=== PATIENT | female | born 1965 | race Caucasian/White ===

== ENCOUNTER → 2021-03-19 | Outpatient (CLI) | payer OTHER ==
[~2021-03-19] MED LIST: ENDOCET 5-3251 EACH PO; FLEXERIL PO; NAPROSYN500 MG PO; NEURONTIN 300300 M1 PO; PERCOCET PO; RELAFEN; VICODIN ES 7.51 EACH
== END ==
LOC: M.RAD 08:48
PROVIDERS: ATTEND Internal Medicine
DX: Z12.31 Encounter for screening mammogram for malignant neoplasm of breast (principal); N63.10 Unspecified lump in the right breast, unspecified quadrant

== ENCOUNTER → 2021-03-24 | Outpatient (CLI) | payer OTHER | LOC: M.RAD 03-20 16:20 | PROVIDERS: ATTEND Internal Medicine | DX: N63.10 Unspecified lump in the right breast, unspecified quadrant (principal) ==